=== PATIENT | female | born 1985 | race Caucasian/White ===

== ENCOUNTER 2016-09-06 08:50 | Emergency (ER) | payer BC, MEDICAID ==
[~2016-09-06 08:50] MED LIST: BACTRIM DS TABL1 TA1 PO; IBUPROFEN800 MG PO; KEFLEX500 MG PO; MEDROL DOSEPAK4 MG PO; NAPROSYN500 MG PO
== END 2016-09-06 09:25 | disposition home or self-care (01) ==
LOC: CED 08:50
DX: K08.89 Other specified disorders of teeth and supporting structures (principal); J45.909 Unspecified asthma, uncomplicated; Z98.51 Tubal ligation status; Z88.0 Allergy status to penicillin
CPT/HCPCS: 99282